=== PATIENT | female | born 1950 | race Caucasian/White ===

== ENCOUNTER 2024-07-01 06:33 | Observation (INO) ==
--- NOTE | 2024-06-01 10:15 | PAT Medication Instructions ---
Medication Instructions Date of Service June 01, 2024 Home Medications aspirin-caffeine 500 mg-32.5 mg tablet ([facility] [employer]) 2 tab PO QAM fluticasone propionate 50 mcg/actuation nasal spray,suspension 50 mcg intranasal UD PRN Congestion hydrochlorothiazide 25 mg tablet 25 mg PO QAM ibuprofen 200 mg capsule 200 mg PO Q6H PRN Pain levothyroxine 88 mcg tablet 88 mcg PO QAM losartan 50 mg tablet 50 mg PO QAM pantoprazole 40 mg tablet,delayed release 40 mg PO BID potassium chloride 20 mEq tablet,extended release(part/cryst) 20 meq PO QAM sertraline 100 mg tablet 100 mg PO QAM ASK your surgeon for instructions aspirin-caffeine 500 mg-32.5 mg tablet ([facility] [employer]) 2 tab PO QAM ibuprofen 200 mg capsule 200 mg PO Q6H PRN Pain DO NOT take the morning of surgery hydrochlorothiazide 25 mg tablet 25 mg PO QAM losartan 50 mg tablet 50 mg PO QAM potassium chloride 20 mEq tablet,extended release(part/cryst) 20 meq PO QAM Take morning of surgery With a small sip of water, OTHERWISE NOTHING TO EAT OR DRINK AFTER MIDNIGHT: fluticasone propionate 50 mcg/actuation nasal spray,suspension 50 mcg intranasal UD PRN Congestion (if needed) levothyroxine 88 mcg tablet 88 mcg PO QAM pantoprazole 40 mg tablet,delayed release 40 mg PO BID sertraline 100 mg tablet 100 mg PO QAM Take evening before surgery fluticasone propionate 50 mcg/actuation nasal spray,suspension 50 mcg intranasal UD PRN Congestion (if needed) pantoprazole 40 mg tablet,delayed release 40 mg PO BID Other Notes If you have any questions please call us at [phone] or [phone] or [phone] or [phone]
--- NOTE | 2024-06-06 08:14 | Anesthesiology Consultation ---
Date of Service June 06, 2024 Assessment & Plan (1) Encounter for pre-operative examination: - Infectious disease screening: Per assessment on 06/06/24- No known recent infectious disease contacts or current infectious disease symptoms. - Outpatient joint assessment: Pt currently scheduled for inpatient pathway. If surgeon requests review for outpatient joint pathway, patient is not recommended candidate for outpatient joint program from anesthesia standpoint based on available information. Chart Review Chart Review: Acceptable Risk for Surgery and Patient seen in Pre Admission Testing Teaching & Discussion Pre-Anesthesia Teaching/Discussion Notes: Instructed NPO after midnight before surgery,except medications with 15 cc of water. Medication instructions provided according to the PAT guidelines. History Surgery Operation Date: 07/01/24 10:40 Proposed Procedures p Right Total Knee Arthroplasty - Candido Rincon MD Height/Weight Height: 4 ft 11 in Weight: 66.8 kg Allergies Allergy/AdvReac Type Severity Reaction Status Date / Time No Known Allergies Allergy Verified 05/27/24 08:19 Medications Home Medications Medication Instructions Recorded Confirmed Last Taken aspirin-caffeine 500 mg-32.5 mg 2 tab PO QAM 05/27/24 05/27/24 Unknown tablet ([facility] [employer] Body) fluticasone propionate 50 50 mcg intranasal UD PRN Congestion 05/27/24 05/27/24 Unknown mcg/actuation nasal spray,suspension hydrochlorothiazide 25 mg tablet 25 mg PO QAM 05/27/24 05/27/24 Unknown ibuprofen 200 mg capsule 200 mg PO Q6H PRN Pain 05/27/24 05/27/24 Unknown levothyroxine 88 mcg tablet 88 mcg PO QAM 05/27/24 05/27/24 Unknown losartan 50 mg tablet 50 mg PO QAM 05/27/24 05/27/24 Unknown pantoprazole 40 mg tablet,delayed 40 mg PO BID 05/27/24 05/27/24 Unknown release potassium chloride 20 mEq 20 meq PO QAM 05/27/24 05/27/24 Unknown tablet,extended release(part/cryst) sertraline 100 mg tablet 100 mg PO QAM 05/27/24 05/27/24 Unknown Past Medical History Medical History Chronic back pain X-ray showed "showed tightening around the nerves in lower back" History of depression History of hypertension Hx of gastroesophageal reflux (GERD) Hx of hyperlipidemia Hx of migraines Exercise / Class Metabolic Activity III < 4 Walking/Shop/Light housework (uses cane PRN) Past Surgical History Surgical History History of dilatation and curettage History of esophagogastroduodenoscopy (EGD) Hx laparoscopic cholecystectomy (2023) Hx of arthroscopy of left knee Foreign body removal Hx of bilateral cataract extraction Hx of breast biopsy Right breast Benign; marker is present Hx of section Hx of colonoscopy (2022) Past Anesthesia History No Hx of Anesthesia Complications * Mother- slow to wake History of PONV No Hx of PONV and No Hx of Motion Sickness Social History Smoking Status: Former smoker Do You Dip or Chew Tobacco: No Smoking End Date: Quit years ago Hx Alcohol Use: Yes alcohol intake frequency: holidays/special occasions only Hx Substance Use: No substance use type: does not use Review of Systems Patient denies chest pain, shortness of breath, fever, chills, cough, wheezing. Physical Exam Vital Signs BP 159/78 P 65 TEMP 98.0 SP02 98%RA RESP 16 Physical Full cervical extension range of motion. Full TMJ range of motion. TMD 3 finger breaths Mallampati Score III Dentition: full upper/lower dentures Lungs: clear throughout to auscultation Cardiac: regular rate and rhythm, no murmurs noted Spine: normal Carotid arteries: negative bruit Extremities: no LE edema Lab Results Anesthesia Preop Results Results Anesthesia Widget: WBC 5.78 K/ul (4.8-10.8) 06/06/24 Hgb 13.4 g/dl (12.0-16.0) 06/06/24 Hct 38.2 % (37.0-47.0) 06/06/24 Plt 356 K/uL (130-400) 06/06/24 Na 141 mmol/L (136-145) 06/06/24 K 3.5 mmol/L (3.5-5.1) 06/06/24 Cl 106 mmol/L (98-107) 06/06/24 CO2 27 mmol/L (21-32) 06/06/24 BUN 25 mg/dl (6-23) H 06/06/24 Creat 1.02 mg/dl (0.6-1.2) 06/06/24 Glucose Level 85 mg/dl (70-99(Fasting)) 06/06/24 PT 10.1 Seconds (9.0-12.0) 06/06/24 PTT 25 Seconds (21-31) 06/06/24 INR 0.9 (0.9-1.1) 06/06/24 Blood Type B Negative 06/06/24 Antibody Screen NEGATIVE 06/06/24 Testing Electrocardiogram Date: 09/14/23 NSR at 61bpm. NS TWA. Chest X-Ray Date: 08/04/23 FINDINGS: Cardiomediastinal and hilar silhouettes are within normal limits. Eventration of the right hemidiaphragm. Atherosclerosis of the aorta. No pneumothorax, pleural effusion, airspace consolidation or pulmonary edema. Bones appear grossly intact. IMPRESSION: No acute process.
--- NOTE | 2024-06-20 20:20 | History & Physical Report ---
Date of Service June 20, 2024 Assessment & Plan (1) Degenerative arthritis of knee, bilateral: 73-year-old female with advanced bilateral knee DJD. History of left knee arthroscopy in the past. She has failed conservative measures. The right knee is bothering more than the left. She elected proceed with right knee replacement. Plan: We are going to take her to the operating room and do a right total knee replacement for the risks and benefits of this procedure were explained. Informed consent was obtained. Will plan on using aspirin for DVT prophylaxis. She is planning to discharge to home using the [facility] home health program. She lives with her brother and her children can assist in the her care postoperatively. (2) Hx of hyperlipidemia: (3) History of hypertension: (4) Hx of gastroesophageal reflux (GERD): (5) History of depression: History of Present Illness Chief Complaint: . Bilateral knee pain right side greater than left. Primary Care Provider: Eleanor Sampson DO . The patient is a 73-year-old female referred by my physician assistant media buyer Kenan for treatment of her knees. She got a fairly long history of bilateral knee pain discomfort is gradually gotten worse over time. Previously she has been treated at the [facility]. She has a history of a left knee scope in the past. She been through therapy and injections which become less successful over time. The right knee is bothering more than the left. He is actually resorted and used a cane to get around. She like to have her right knee replaced. Allergies Allergy/AdvReac Type Severity Reaction Status Date / Time No Known Allergies Allergy Verified 05/27/24 08:19 Home Medications Medication Instructions Recorded Confirmed Type aspirin-caffeine 500 mg-32.5 mg 2 tab PO QAM 05/27/24 05/27/24 History tablet ([facility] [employer]) fluticasone propionate 50 50 mcg intranasal UD PRN Congestion 05/27/24 05/27/24 History mcg/actuation nasal spray,suspension hydrochlorothiazide 25 mg tablet 25 mg PO QAM 05/27/24 05/27/24 History ibuprofen 200 mg capsule 200 mg PO Q6H PRN Pain 05/27/24 05/27/24 History levothyroxine 88 mcg tablet 88 mcg PO QAM 05/27/24 05/27/24 History losartan 50 mg tablet 50 mg PO QAM 05/27/24 05/27/24 History pantoprazole 40 mg tablet,delayed 40 mg PO BID 05/27/24 05/27/24 History release potassium chloride 20 mEq 20 meq PO QAM 05/27/24 05/27/24 History tablet,extended release(part/cryst) sertraline 100 mg tablet 100 mg PO QAM 05/27/24 05/27/24 History Past Med/Surg History Problem List Encounter for pre-operative examination Degenerative arthritis of knee, bilateral Medical History Chronic back pain X-ray showed "showed tightening around the nerves in lower back" Hx of migraines History of depression History of hypertension Hx of hyperlipidemia Hx of gastroesophageal reflux (GERD) Surgical History Hx of breast biopsy Right breast Benign; marker is present History of dilatation and curettage Hx of arthroscopy of left knee Foreign body removal Hx laparoscopic cholecystectomy (2023) Hx of section History of esophagogastroduodenoscopy (EGD) Hx of colonoscopy (2022) Hx of bilateral cataract extraction Social History Smoking Status: Former smoker Second Hand Exposure: Yes (brother lives w/pt and he smokes); Do You Dip or Chew Tobacco: No; Hx Alcohol Use: Yes Hx Substance Use: No Preferred Language: Citizen Of [place] Communication Ability: Effective Depilatory Painter Required: No Beliefs That Will Affect Care: None Current Living Situation: Family Feels Safe at Home: Yes Assistive Devices: Denture - Upper and Denture - Lower Review of Systems All systems reviewed & are unremarkable except as noted in HPI & below. Physical Exam . Physical examination reveals a pleasant middle-age female. She looks younger than her stated age. Examination of both knees reveal patient ambulates with use of cane. She got valgus alignment to both knees which is increased with weightbearing. Her range of motion is symmetric with near full extension to 120 degrees of flexion bilaterally. No particular pain with hip motion. She is neurologically intact. Constitutional WD/WN, vitals as above Respiratory normal respiratory effort, lungs clear to auscultation Cardiovascular RRR, no murmur, no edema Gastrointestinal (Abdomen) normal bowel sounds, soft, nontender, no hepatosplenomegaly Results & Data Results & Data Laboratory Results . Diagnostic Findings . X-rays of the knees were reviewed. Shows advanced bilateral knee lateral compartment DJD. She has complete loss of the lateral joint space. Both knees are fairly advanced. PG Care Time/CCT Total # of Minutes Spent Total Time Spent with Patient: Total time spent is greater than 50% in coordination of care (as documented) at patient's floor/unit and/or counseling patient: Coding Level of Care Code None Diagnoses Degenerative arthritis of knee, bilateral M17.0 Hx of hyperlipidemia Z86.39 History of hypertension Z86.79 Hx of gastroesophageal reflux (GERD) Z87.19 History of depression Z86.59
[~2024-07-01 06:33] MED LIST: BUPIVACAINE 0.5 % 5 MG/1 ML PF 10ML VIAL ONE; ROPIVACAINE 0.5% 5 MG/ML 30 ML VIAL ONE
--- NOTE | 2024-07-01 06:46 | History & Physical Bridge Note ---
Date of Service July 01, 2024 History & Physical Bridge Note I have examined the patient, reviewed the History & Physical and in the interval since the performance of the History & Physical I have noted the following changes of clinical significance: no changes noted
--- OUTSIDE RECORDS SUMMARY | 2024-07-01 06:57 | External Medical Summary | Summary of Care ---
Author Name Unknown Organization [facility] Address [address] [place] [address] Phone [phone] Care Team Providers Care Medicaid Billing Specialist Name Role Phone Arsenio Sampson DO Primary Care Provider [phone] Reason for Visit * Reason Comments eRx-Medication Refill Encounter Details Date Type Department Care Team (Late st Contact Info) Description 06/24/2024 Refill [facility] [address] [place] [address] Arsenio Sampson DO [address] [place] [address] Allergies No known active allergiesdocumented as of this encounter (statuses as of 06/29/2024) Medications VITAMIN C 500 MG PO TABS 1 TABLET DAILY 0 08/04/19 07 Active VITAMIN D 2000 UNITS PO CAPS Take by mouth. A ctive Cyanocobalamin 2000 MCG TABS Take by mouth. A ctive Black Elderberry(Berr y-Flower) 575 MG Oral Capsule Take by mouth daily . Active Magnesium 400 MG Oral Capsule Take 1 Capsule by mouth in the morning. Active Proventil HFA 108 (90 Base) MCG/ACT Inhalation Aerosol SolutionIndicat ions:Bronchitis ,Upper respiratory tract infection, unspecified type Inhale 2 Puffs by mouth every 4 hours as needed for Congestion, Cough or Wheezing. 18 g 06/15/19 23 Active Brice Back & Body 500-32.5 MG Oral Tablet (Aspirin-Caffei ne) Take 2 Tablets by mouth every morning. Active Ibuprofen 200 MG Oral Tablet (Motrin) Take 1 Tablet by mouth every 4 hours as needed. Active Losartan Potassium 50 MG Oral Tablet (Cozaar)Indicat ions:Essential hypertension with goal blood pressure less than 140/90 Take 1 Tablet by mouth in the morning. 90 Tablet 3 10/11/19 24 Active oxyCODONE-Aceta minophen 5-325 MG Oral Tablet (Percocet) Take 1 Tablet by mouth every 6 hours as needed for Pain, Breakthrough. 14 Tablet 11/20/19 24 Active hydroCHLOROthia zide 25 MG Oral Tablet (Hydrodiuril)In dications:Edema TAKE 1 TABLET BY MOUTH DAILY NEEDED FOR EDEMA 90 Tablet 3 02/04/20 24 Active Pantoprazole Sodium 40 MG Oral Tablet Delayed Release (Protonix)Indic ations:Acute gastric ulcer without hemorrhage or perforation take 1 tablet by mouth twice a day 30 MINUTES PRIOR TO THE 1ST MEAL OF THE DAY,DO NOT CRUSH,SPLIT OR CHEW THE TABLET 60 Tablet 5 02/10/20 24 Active Sertraline HCl 100 MG Oral Tablet (Zoloft)Indicat ions:Adjustment disorder with depressed mood Take 1 Tablet by mouth in the morning. 90 Tablet 1 02/20/20 24 Active Fluticasone Propionate 50 MCG/ACT Nasal Suspension (Flonase)Indica tions:Allergic rhinitis due to pollen, unspecified seasonality USE 2 SPRAYS IN EACH NOSTRIL EVERY MORNING 48 g 1 02/20/20 24 Active Potassium Chloride Sara ER 20 MEQ Oral Tablet Extended ReleaseIndicati ons:Abnormal blood chemistry TAKE 1 TABLET BY MOUTH EVERY MORNING 90 Tablet 1 02/20/20 24 Active Levothyroxine Sodium 88 MCG Oral Tablet (Levoxyl) TAKE 1 TABLET BY MOUTH EVERY MORNING AT LEAST 30 MINUTES PRIOR TO BREAKFAST OR OTHER MEDICATIONS 90 Tablet 06/28/19 25 Active Levothyroxine Sodium 88 MCG Oral Tablet (Levoxyl) TAKE 1 TABLET BY MOUTH EVERY MORNING AT LEAST 30 MINUTES PRIOR TO BREAKFAST OR OTHER MEDICATIONS 90 Tablet 03/29/19 25 025 Discontinued documented as of this encounter (statuses as of 06/29/2024) Active Problems Problem Noted Date Diagnosed Date Chronic calculous cholecystitis 08/17/2023 Dyslipidemia, goal LDL below 100 03/24/2019 Acquired hypothyroidism 03/05/2017 Essential hypertension with goal blood pressure less than 140/90 03/13/2016 Adjustment disorder with depressed mood documented as of this encounter (statuses as of 06/29/2024) Resolved Problems Problem Noted Date Diagnosed Date Resolved Date Prediabetes 07/21/2017 10/14/2018 Overview: Per Prediabetes protocol #1 HTN, goal below 140/90 07/03/201503/13 Dyslipidemia, goal to be determined 02/13/2009 02/14/2014 Overview (02/13/2009): Per Lipid Taxonomy. ADVANCE DIRECTIVE INFORMATION 06/08/2007 01/04/2024 Overview (06/08/2007): No, Advance Directive brochure offered , patient declined. Hypothyroidism 03/13/2016 Edema 10/03/2016 Dyslipidemia, goal LDL below 160 02/13/2009 Overview (02/13/2009): Per Lipid Taxonomy. documented as of this encounter (statuses as of 06/29/2024) Immunizations Name Administration Dates Next Due COVID-19 mRNA, LNP-s, No Pre serve, 2-Dose Series (Teachable) 05/23/2020,04/25/2020 HEP A - Hepatitis A (Adult > 18 yrs) 02/20/2014, 02/13/2011 Hepatitis B, 20+ yrs 07/25/2011,04/16/2011,01/22 Pneumococcal Conjugate Vacc, 13 Valent (Prevnar) 06/27/2016 Pneumococcal Polysaccharide PPV23 (Pneumovax) 04/08/2019 Seasonal Influenza Vac., MDV , IM, 0.5 mL (Fluzone) 12/04/2011,11/08/2010,2009,01/16 Seasonal Influenza, High Dos e, Trivalent, PF, IM (Fluzone HD) 02/17/2024 Seasonal Influenza, PF, 6 M & above, IM , (FluLaval or Fluzone) 12/19/2019,01/25/2019 Seasonal Influenza, Quadriva lent Hd (Fluzone Hd) 01/30/2023,01/30/2022 TDAP (age 10 and older)(Boostrix) 01/25/2019 TDAP, Age 7 and older, IM (Adacel) 09/18/2009 documented as of this encounter Social History Tobacco Use Types Packs/Day Years Used Date Smoking Tobacco: Former Cigarettes 0.5 20 0 03/02/1980 - 03/02/2000 Passive Smoke Exposure: Current Smokeless Tobacco: Never Alcohol Use Standard Drinks/Week Comments Yes 4 (1 standard drink = 0.6 oz pur e alcohol) occasional: 2per week PHQ-2 Answer Date Recorded PHQ Adult Total Score 0 02/17/2024 Hunger Vital Sign Answer Date Recorded Within the past 12 months, y ou worried that your food would run out before you got the money to buy more. Never true 02/03/20 24 Within the past 12 months, t he food you bought just didn't last and you didn't have money to get more. Never true 02/03/2024 Childcare Answer Date Recorded Do you feel overwhelmed with taking care of a child, family member or friend? No 02/03/2024 Does your family need help f inding childcare? (Household - for ages 0-17 years) Not on file 02/03/2024 Clothing Answer Date Recorded Have you been unable to get clothing when it was really needed? No 02/03/2024 Is your family able to get c lothes or diapers when needed? (Household - for ages 0-17 years) Not on file 02/03/2024 Personal Safety Answer Date Recorded Do you feel unsafe or have concerns for your saf ety? No 02/03/2024 Do you have concerns for you r family's safety? (Household - for ages 0-17 years) Not on file 02/03/2024 Utilities Answer Date Recorded Do you have trouble paying y our heating, water, or electric bill? No 02/03/2024 Is your family able to pay t he heat, water, or electric bill? (Household - for ages 0-17 years) Not on file 02/03/2024 Does your family have access to good internet? (Household - for ages 0-17 years) Not on file 02/03/2024 Employment Status Answer Date Recorded Are you unemployed or without regular income? No 02/03/2024 Does the household have a re gular source of income? (Household - for ages 0-17 years) Not on file 02/03/2024 Social Connections Answer Date Recorded How often do you feel lonely or isolated from th ose around you? Never 02/03/2024 Financial Resource Strain Answer Date R ecorded Do you have any trouble payi ng for your medications, or do you think you might in the future? No 02/03/2024 Does your family have troubl e paying for medicine? (Household - for ages 0-17 years) Not on file 02/03/2024 Transportation Needs Answer Date Record ed Do you have trouble getting a ride to medical visits or work? (Adult - for ages 18 years and over) Not on file 02/03/2024 Does your family have a hard time getting a ride to doctors visits? (Household - for ages 0-17 years) Not on file 02/03/2024 Has lack of transportation k ept you from medical appointments, meetings, work, or from getting things needed for daily living? Check all that apply. No 02/03/2024 Do you (or your family) have trouble finding or paying for a ride (transportation)? (Household - for ages 0-17 years) Not on file 02/03/2024 Housing Stability Answer Date Recorded Do you currently live in a s helter or have no steady place to sleep at night? No 02/03/2024 Do you think you are at risk of becoming homeless? (Adult - for ages 18 years and over) Not on file 02/03/2024 Does your family worry about paying for your home or becoming homeless? (Household - for ages 0-17 years) Not on file 1 04/05/2023 Are you homeless or worried that you might be in the future? No 02/03/2024 Are you (or your family) alvaro eless or worried that you might be in the future? (Household - for ages 0-17 years) Not on file Food Insecurity Answer Date Recorded Do you need food for this week? No 02/03/2024 Are you able to get enough f ood for your family? (Household - for ages 0-17 years) Not on file 02/03/2024 Does your family need food t his week? (Household - for ages 0-17 years) Not on file 02/03/2024 Do you always have enough fo od for your family? (Household - for ages 0-17 years) Not on file 02/03/2024 Food Insecurity Answer Date Recorded Within the past 12 months, y ou worried that your food would run out before you got the money to buy more. Never true 02/03/20 24 Within the past 12 months, t he food you bought just didn't last and you didn't have money to get more. Never true 02/03/2024 Do you need food for this week? 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 regarding patient needing labs. Patient was notified. Successfully contacted patient and provided [facility] message. * Telephone Encounter - Dana Christian [facility] - 06/27/2024 6:20 AM EDTSigned Prescriptions: Disp Refills Levothyroxine Sodium 88 MCG Oral Tablet (L*90 Tab*0 Sig: TAKE 1 TABLET BY MOUTH EVERY MORNING AT LEAST 30 MINUTES PRIOR TO BREAKFAST OR OTHER MEDICATIONS Authorizing Provider: ARSENIO SAMPSON Ordering User: DANA CHRISTIAN * Telephone Encounter - Dana Christian [facility] - 06/27/2024 6:20 AM EDT 2nd attempt Provided 90 days supply with 0 refill(s). Per refill protocol patient should have repeat tsh on file within past year. Reviewed : AMP report Care Gaps/Health Maintenance medications list for any routine labs typically ordered for this patient. Lab orders placed. Please contact patient to advise of labs ordered for blood draw. Fasting is not required. Advise toobtain labs before requesting the next refill. Thank you, Dana Christian, PharmD. Clinical Pharmacist [facility] 06/27/2024, 6:20 AM * Telephone Encounter - Interface, [facility] - 06/26/2024 12:41 PM EDT Pending Prescriptions: Disp Refills Levothyroxine Sodium 88 MCG Oral Tablet [P*90 Tab*0 Sig: TAKE 1 TABLET BY MOUTH EVERY MORNING AT LEAST 30 MINUTES PRIOR TO BREAKFAST OR OTHER MEDICATIONS documented in this encounter Plan of Treatment Upcoming Encounters Date Type Department Care Team (Latest Contact Info) Description 08/22/2024 11:45 AM EDT Hospital Encounter [facility], Endoscopy Room [facility] [address] [place] [phone] Orlando Gill, DO [address] [place] [address] 08/22/2024 11:45 AM EDT - 08/22/2024 12:15 PM EDT Surgery [facility]O [facility], Endoscopy Room [facility] [address] [place] [phone] Orlando Gill, DO [address] [place] [address] COLONOSCOPY FLEXIBLE PROXIMAL DIAGNOSTIC 08/29/2024 9:10 AM EDT Office Visit [facility] [place] [facility] [address] [place] [phone] Arsenio Sampson, DO [address] [place] [address] 10/03/2024 8:15 AM EDT Imaging Radiology [address] [place] [phone] Scheduled Procedures Name Priority Associated Diagnoses Date/Ti me COLONOSCOPY FLEXIBLE PROXIMAL DIAGNOSTIC Family history of colonic polyps 08/22/2024 11:45 AM EDT Health Maintenance Due Date Last Done Comments Cologuard 12/15/1995 Fecal Occult Blood Test 12/15/1995 Sigmoidoscopy 12/15/1995 Adult Wellness Visit 2016 Zoster Vaccines (2 of 2) 12/31/2021 11/05/2021 COVID-19 Vaccine ( season) 2023 01/18/2021, 05/23/2020, 04/25/2020 Mammogram 09/23/2024 09/24/2023, 08/31, 08/18/2022, Additional history exists Albumin/Creatinine Ratio 01/30/2025 01/30/2022 Depression Screening 02/16/2025 02/17/2024 GFR 02/21/2025 02/22/2024, 07/31, 08/03/2023, Additional history exists TSH 02/21/2025 02/22/2024, 05/2023, 07/31/2022, Additional history exists Colonoscopy 11/16/2025 11/16/2020, 10/31, 04/07/2017, Additional history exists Colorectal Cancer Screening 11/16/2025 Lipid Panel 08/02/2028 08/03/2023, 0603/2022, 08/01/2021, Additional history exists DTap/Tdap Vaccines (3 - Td or Tdap) 01/25/2029 01/25/2019, 09/18/2009 DXA Scan 02/01/2031 02/02/2024, 05/2023, 03/31/2016, Additional history exists Hepatitis B Vaccine Completed 07/25/2011, 04/16/2011, 01/22/2011 Pneumococcal Vaccine: 50+ Years Completed 04/08/2019, 06/27/2016 RETIRED - COLONOSCOPY-EVERY 5 YRS AGES 18-100 Discontinued 11/16/2020, 11/16/2020, 04/07/2017, Additional history exists Influenza Vaccine (FLU shot) Completed 02/17/2024, 01/30/2023, 01/30/2022, Additional history exists HPV (Gardasil) Vaccine Aged Out No lo nger eligible based on patient's age to complete this topic MENINGOCOCCAL (MENACTRA/MENVEO) Aged Out No longer eligible based on patient's age to complete this topic Meningitis B Vaccine (Bexsero/Trumemba) Aged Out No longer eligible based on patient's age to complete this topic documented as of this encounter Medical Devices Implanted Type Area Video Camera Operator Device Identifier Shelf Expiration Date Model / Serial / Lot Lens 22.5 [id number] - [id number] - [id number] Implanted:Qty: 1 on 07/18/2015 by Raheem Dominguez MD at [facility] Right: Eye DESI : SURGICAL 01/30/2020 [id number] / [id number] / Lens 22.5 [id number] - [id number] - [id number] Implanted:Qty: 1 on 08/14/2015 by Khushi Montgomery MD at [facility] Left: Eye DESI : SURGICAL 05/30/2020 [id number] / [id number] / documented as of this encounter Advance Directives * Full Code (Latest Code Status on File) Date Activated Date Inactivated Comments 11/20/2023 7:56 AM 11/20/2023 5:22 PM This order r eflects the patients wishes and were consensually agreed upon. Question Answer Comments Discussion of Advance Direct frank occurred with: Not Discussed due to patient's condition * Full Code Date Activated Date Inactivated Comments 08/14/2015 2:41 PM 08/14/2015 7:21 PM This order r eflects the patients wishes and were consensually agreed upon. * Full Code Date Activated Date Inactivated Comments 07/18/2015 3:18 PM 07/18/2015 8:04 PM This order r eflects the patients wishes and were consensually agreed upon. * Full Code Date Activated Date Inactivated Comments 07/18/2015 1:08 PM 07/18/2015 3:18 PM This order r eflects the patients wishes and were consensually agreed upon. Care Teams Medicaid Billing Specialist Relationship Specialty Start Date End Date Arsenio Sampson DO PCP - General Family Medicine 03/19/18 documented as of this encounter
[2024-07-01] MEDS: METOCLOPRAMIDE HCL 10 MG TABLET PO SCH (07:24)
[2024-07-01] MEDS: dexAMETHasone**PF** 10 MG/ML VIAL IV SCH (07:24)
[2024-07-01] MEDS: FAMOTIDINE 20 MG TAB PO SCH (07:24)
[2024-07-01] MEDS: CeleBREX 200 MG CAP PO SCH (07:25)
[2024-07-01] MEDS: ACETAMINOPHEN 500 MG TAB PO SCH ×2 (07:25→15:06)
[2024-07-01] MEDS: LR 500ML BOLUS, THEN 15ML/HR IV SCH (07:25)
[2024-07-01] MEDS ORDERED: MIDAZOLAM HCL 1 MG/ML 2ML VIAL ONE (07:31)
[2024-07-01] MEDS ORDERED: fentaNYL citrate PF 100 MCG/2 ML VIAL ONE (07:31)
[2024-07-01] MEDS ORDERED: LIDOCAINE 2% 2 ML VIAL/AMP(20MG/ML) INFIL ONE (07:32)
[2024-07-01] MEDS ORDERED: fentaNYL citrate PF 100 MCG/2 ML VIAL IV PRN (07:33)
[2024-07-01] MEDS ORDERED: HYDROmorphone INJ 1 MG/ML SYRINGE IV PRN (07:33)
[2024-07-01] MEDS ORDERED: ePHEDrine sulfate 50 MG/ML AMP IV PRN (07:33)
[2024-07-01] MEDS ORDERED: ATROPINE SULFATE 0.1 MG/ML 10ML SYR IV PRN (07:33)
[2024-07-01] MEDS ORDERED: ONDANSETRON INJ 2 MG/ML 2 ML VIAL IV PRN ×2 (07:33→14:16)
[2024-07-01] MEDS ORDERED: PROPOFOL IV EMULSION 10 MG/ML 20 ML VIAL IV ONE (07:34)
--- NOTE | 2024-07-01 07:35 | Anesthesiology Consultation ---
Date of Service July 01, 2024 Assessment & Plan Chart Review Chart Review: Acceptable Risk for Surgery Consults Requested none ASA ASA2 Proposed Anesthesia Anesthesia Type: MAC Spinal [facility] Laterality: Right Site: Adductor Canal History Surgery Operation Date: 07/01/24 08:50 Proposed Procedures p Right Total Knee Arthroplasty - Candido Rincon MD Height/Weight Height: 4 ft 11 in Weight: 66.2 kg Allergies Allergy/AdvReac Type Severity Reaction Status Date / Time No Known Allergies Allergy Verified 07/01/24 07:03 Medications Home Medications Medication Instructions Recorded Confirmed Last Taken aspirin-caffeine 500 mg-32.5 mg 2 tab PO QAM 05/27/24 07/01/24 06/24/24 tablet (Brice Back and Body) fluticasone propionate 50 50 mcg intranasal UD PRN Congestion 05/27/24 07/01/24 Unknown mcg/actuation nasal spray,suspension hydrochlorothiazide 25 mg tablet 25 mg PO QAM 05/27/24 07/01/24 06/30/24 08:00 ibuprofen 200 mg capsule 200 mg PO Q6H PRN Pain 05/27/24 07/01/24 06/24/24 levothyroxine 88 mcg tablet 88 mcg PO QAM 05/27/24 07/01/24 07/01/24 05:30 losartan 50 mg tablet 50 mg PO QAM 05/27/24 07/01/24 06/30/24 08:00 pantoprazole 40 mg tablet,delayed 40 mg PO BID 05/27/24 07/01/24 07/01/24 05:30 release potassium chloride 20 mEq 20 meq PO QAM 05/27/24 07/01/24 06/30/24 08:00 tablet,extended release(part/cryst) sertraline 100 mg tablet 100 mg PO QAM 05/27/24 07/01/24 07/01/24 05:30 acetaminophen 500 mg tablet 1,000 mg (2 x 500 mg) PO TID pain 06/29/24 07/01/24 06/30/24 20:00 (Tylenol Extra Strength) 30 days #180 tabs aspirin 81 mg tablet,delayed 81 mg PO BID 45 days #90 tabs 06/29/24 07/01/24 Unknown release (Brice Low Dose Aspirin) cefadroxil 500 mg capsule 500 mg PO BID 7 days #14 caps 06/29/24 07/01/24 Unknown ketorolac 10 mg tablet 10 mg PO Q6 pain 5 days #20 tabs 06/29/24 07/01/24 Unknown ondansetron 4 mg disintegrating 4 mg PO Q8 PRN nausea #20 tabs 06/29/24 07/01/24 Unknown tablet oxycodone 5 mg tablet 5 - 10 mg (1 - 2 x 5 mg) PO Q6 PRN 06/29/24 07/01/24 Unknown pain #40 tabs sennosides 8.6 mg tablet (Senokot) 8.6 mg PO BID prevent constipation 06/29/24 07/01/24 Unknown 14 days #28 tabs Active Medications Generic Name Dose Route Start Last Admin Trade Name Freq PRN Reason Stop Dose Admin Acetaminophen 1,000 mg 07/01/24 06:00 07/01/24 07:25 Acetaminophen 500 Mg Tab PO 07/01/24 18:00 1,000 mg PREOP DIANE Administration Celecoxib 200 mg 07/01/24 06:00 07/01/24 07:25 Celebrex 200 Mg Cap PO 07/01/24 18:00 200 mg PREOP DIANE Administration Dexamethasone Sodium Phosphate 10 mg 07/01/24 06:00 07/01/24 07:24 DexamethasonePf 10 Mg/Ml Vial IV 07/01/24 18:00 10 mg PREOP DIANE Administration Famotidine 20 mg 07/01/24 06:00 07/01/24 07:24 Famotidine 20 Mg Tab PO 07/01/24 18:00 20 mg PREOP DIANE Administration Lactated Ringer's 1,000 mls @ 15 mls/hr 07/01/24 06:00 07/01/24 07:25 Lr IV 07/01/24 18:00 500 mls/hr .Q24H DIANE Administration Metoclopramide HCl 10 mg 07/01/24 06:00 07/01/24 07:24 Metoclopramide Hcl 10 Mg Tablet PO 07/01/24 18:00 10 mg PREOP DIANE Administration NPO Date Last Intake of Fluids: 06/30/24 Time Last Intake of Fluids: 22:00 Last Intake of Fluids Comment: Sip of water with pills this AM Date Last Intake of Solids: 06/30/24 Time Last Intake of Solids: 22:00 Past Medical History Medical History Chronic back pain X-ray showed "showed tightening around the nerves in lower back" Hx of migraines History of depression History of hypertension Hx of hyperlipidemia Hx of gastroesophageal reflux (GERD) Exercise / Class Metabolic Activity II 4-5 Yardwork/Stairs/Walk up hill Past Surgical History Surgical History Hx of breast biopsy Right breast Benign; marker is present History of dilatation and curettage Hx of arthroscopy of left knee Foreign body removal Hx laparoscopic cholecystectomy (2023) Hx of section History of esophagogastroduodenoscopy (EGD) Hx of colonoscopy (2022) Hx of bilateral cataract extraction Past Anesthesia History No Hx of Anesthesia Complications * Mother- slow to wake History of PONV No Hx of PONV Social History Smoking Status: Former smoker Do You Dip or Chew Tobacco: No Smoking End Date: Quit years ago Hx Alcohol Use: Yes alcohol intake frequency: holidays/special occasions only Hx Substance Use: No substance use type: does not use Review of Systems ROS Unobtainable: All systems reviewed & are unremarkable except as noted in HPI & below Physical Exam Vital Signs Last Vital Signs Temp 36.6 C 07/01/24 07:06 Pulse 65 07/01/24 07:06 Resp 20 07/01/24 07:06 BP 215/93 H 07/01/24 07:06 Pulse Ox 98 07/01/24 07:06 O2 Del Method Room Air 07/01/24 07:06 Constitutional no acute distress ENMT Mouth: + edentulous Thyromental Distance: > or= 3.5 Finger Breadths Mallampati Class: II Neck normal visual inspection Respiratory normal respiratory effort Auscultation: lungs clear to auscultation bilaterally Cardiovascular Rate/Rhythm: regular rate and regular rhythm Neurologic moves all extremities Psychiatric Orientation: alert and oriented x 3 Testing Electrocardiogram Date: 09/14/23 NSR at 61bpm. NS TWA. Chest X-Ray Date: 08/04/23 FINDINGS: Cardiomediastinal and hilar silhouettes are within normal limits. Eventration of the right hemidiaphragm. Atherosclerosis of the aorta. No pneumothorax, pleural effusion, airspace consolidation or pulmonary edema. Bones appear grossly intact. IMPRESSION: No acute process.
[2024-07-01] MEDS ORDERED: PHENYLEPHRINE HCL 10 MG/ML VIAL ONE (07:37)
[2024-07-01] MEDS: LR 60ML/HR IV SCH (08:29)
[2024-07-01] MEDS: ceFAZolin 2000MG 2,000 MG/15 ML SYR IV SCH (08:57)
[2024-07-01] MEDS: ORTHO JOINT ANESTHETIC ONE (09:37)
[2024-07-01] MEDS: ROPIV 0.5% 246mg, Ketorolac 30mg, EPINEPHrine 0.5mg in NSS INFIL SCH (09:37)
[2024-07-01] MEDS: TRANEXAMIC ACID 1,000 MG **IV Intra-op IV SCH (09:50)
--- NOTE | 2024-07-01 10:38 | Operative Report ---
PG Post Operative Report Pre & Post Diagnosis Operation Date: 07/01/24 08:50 Pre-Op Diagnosis: Right Knee Degenerative Joint Disease Post-Op Diagnosis: Right Knee Degenerative Joint Disease I identified the patient and participated in the time-out.: Yes Procedure Operation Date: 07/01/24 08:50 Actual Procedures p Right Total Knee Arthroplasty(Right) - Candido Rincon MD Surgeon Candido Rincon MD Manager Floral Kenan Ascencio PA-C Estimated Blood Loss 50 Findings Consistent with Post-Op Diagnosis Operative findings revealed right knee lateral compartment DJD. Just a grade 4 [id number] disease of the lateral compartment. She had some spotty grade 3 changes of the patellofemoral compartment and minimal medial compartment disease. She had a valgus deformity to her knee. Complete tearing and macerati on of her lateral meniscus. Specimens Right knee sent for pathology. Anesthesia Type Spinal MAC Complications none Disposition Accompanied Patient To Recovery: No Indications Patient is a 73-year-old female whose had a several year history of increasing bilateral knee pain discomfort right side greater than left. She been through extensive conservative treatment which became less successful with time. X-rays show bilateral knee arthritis. She like proceed with right total knee replacement as this was bothering more than the left. Description of Procedure Operative implants consist of: 1 Biomet Vanguard size 60 right posterior stabilized femoral component. 2. Biomet size 63 tibial tray. 3. 10 mm posterior stabilized polyethylene insert. 4. 28 x 8 all poly patella. The patient was taken to the operating, identified, placed on the operating table in supine position. All conductors were appropriately padded. IV antibiotics fibra anesthesia team. A spinal anesthetic and adductor canal block had been provided in the holding area. Contreras catheter was placed in sterile fashion. A right thigh tourniquet was then placed. The right lower extremity was then prepped and draped in usual sterile fashion. The right leg was elevated and exsanguinated with use of an Esmarch and a turn was placed at 300 mmHg. An anterior approach of the right knee was then performed through a longitudinal incision centered over the patella. Sharp dissection was got through subcutaneous tissue down the extensor mechanism. A medial parapatellar arthrotomy incision was made. Some subperiosteal dissection was carried out medially. The fat pad was dissected from the patella tendon. Lateral patellofemoral ligament was released. Patella subluxated laterally and the knee was flexed. The osteophytes taken off distal femur. The ACL and PCL were then released from the distal femur the tibia subluxated anteriorly. The external tibial alignment jig was then placed on the anterior face of the tibia and adjusted 12 mm medially. The proximal tibial cut was made to move about 2 to 3 mm of bone from the medial side. The tibia sized to a size 63. Attention drawn to the femur. The distal femur was entered with a sharp drill. Intramedullary canal was suction. A right 5 degree valgus cutting guide was placed. The distal femoral cutting block was pinned in place. This femoral cut was made to take an additional 3 mm of bone off distal femur. The femur was then sized to a size 60. The AP cutting block was pinned parallel to the epicondylar axis which was 3 degrees of external rotation. The anterior cut, anterior chamfer, posterior cut, posterior chamfer cuts were made. The box cutting guide was then placed and adjusted to slightly lateral and the box cut was made. The knee was flexed. The remnants of the medial and lateral menisci were excised. The osteophytes taken off the posterior aspect of femur. A trial femoral component was placed. The tibial tray was pinned in Cheryl external rotation and the drill and stem punch were used great defect in proximal tibia for the tibial tray. Knee was then trialed and the 10 mm insert fit most appropriately. Attention drawn the patella. The patella was cleaned of all soft tissue. Patella thickness measured about 16 mm in thickness and was cut down to 12. It was sized to a size 28 patella. The lug holes were drilled for the 28 patella. The lateral osteophytes removed. Patella button was placed. Knee was taken through range of motion patella tracked nicely with no thumbs test. Attention drawn to placement permanent components. All trial components were removed. Bone plug was placed in the distal femur limit blood loss. A double batch of Palacos G cement was mixed. A Biomet Vanguard size 60 right Po stabilized femoral component, size 63 tibial tray, a 10 mm posterior stabilized polyethylene insert, and a 28 x 8 all poly patella then cemented in place. The knee was brought out of the full extension till cement hardened. Final cement check was then performed. Pericapsular tissues were injected with total of 100 cc of Ortho mix. The patient did receive 1 g tranexamic acid. The tourniquet was then let down for final tourniquet time of 49 minutes. Hemostasis surgeries electrocautery. Extensor Meclomen then closed with combination 1 PDS suture and 1 Vicryl suture in a [id number] fashion. Extensor Meclomen checked found to be intact with subcutaneous tissues then closed with 2 Dexon suture in a buried interrupted fashion skin was closed skin leonard. Leg was then cleaned and dried and a sterile dressing with Xeroform, 4 fours, sterile cast padding, Evgeny bandage were applied. The patient was then transferred to the recovery room in stable condition. Patient tolerated procedure well and there were no complications. Kenan Ascencio, my physician physician assistant certified, was present for the entire procedure. His assistance was essential and required for appropriate patient positioning, prepping and draping, surgical exposure, performing the technical details of the operation, placement the implants, closure of the wound, and placement of the sterile bandage. I attest to the content of the Intraoperative Record and any orders documented therein. Any exceptions are noted below.
--- NOTE | 2024-07-01 11:03 | XRay Report ---
XR knee RT 1 or 2V routine HISTORY: 73 years-old Female Surgical Post Op right knee arthroplasty COMPARISON: Radiographs 05/19/2024 TECHNIQUE: 2 views of the right knee FINDINGS: Total joint arthroplasty with patellar resurfacing. Anterior midline skin leonard with expected posto perative soft tissue swelling and deep tissue air. IMPRESSION: Total joint arthroplasty with expected postoperative changes. ACT 112: Negative or not required by law. The above report was generated using voice recognition software. It may contain grammatical, syntax o r spelling errors. Electronically signed by: Saw Mayer M.D. 07/01/2024 11:01 AM
--- NOTE | 2024-07-01 11:45 | Anesthesiology Progress Note ---
Date of Service July 01, 2024 Anesthesia Post Procedure Vital Signs Vital Signs: Temp Pulse Pulse Resp BP Pulse Ox O2 Del Method 07/01/24 11:30 58 L 15 186/85 H 92 Room Air 07/01/24 11:20 56 L 17 184/74 H 94 Room Air 07/01/24 11:10 59 L 18 172/76 H 95 Room Air 07/01/24 11:00 63 15 175/75 H 98 Room Air 07/01/24 10:50 70 19 164/70 H 96 Room Air 07/01/24 10:40 65 16 156/75 H 98 Room Air 07/01/24 10:32 36.0 C L 65 11 L 133/68 96 Room Air 07/01/24 07:06 36.6 C 65 20 215/93 H 98 Room Air Pain Intensity Right Knee: Pain Intensity: 5 Transfer of Care Handoff Completed per policy Notes Mental Status: alert / awake / arousable Patient Amnestic to Procedure: Yes Nausea / Vomiting: adequately controlled Pain: adequately controlled Airway Patency, RR, SpO2: stable & adequate BP & HR: stable & adequate Hydration State: stable & adequate Neuraxial Anesthesia: was administered and sensory block is resolving Anesthetic Complications: no major complications apparent and Pt Satisfied with anesthetic care Notes: Riley BALDERAS
[2024-07-01] MEDS ORDERED: NALOXONE HCL 0.4 MG/1 ML VIAL/CARP IV PRN (14:16)
[2024-07-01] MEDS ORDERED: METOCLOPRAMIDE HCL INJ 5 MG/ML 2 ML VIAL IV PRN (14:16)
[2024-07-01] MEDS ORDERED: MAGNESIUM HYDROXIDE SUSP 30 ML UDC PO PRN (14:16)
[2024-07-01] MEDS ORDERED: bisacodyL 10 MG SUPP PR PRN (14:16)
[2024-07-01] MEDS ORDERED: FLUTICASONE PROPIONATE NA SPR 16 GM BTL NAE PRN (14:16)
[2024-07-01] MEDS ORDERED: oxyCODONE HCL IR 5 MG TAB (IMMEDIATE RELEASE) PO PRN (14:16)
[2024-07-01] MEDS ORDERED: ALUMINUM/MAGNESIUM SUSP 30 ML UDC PO PRN (14:16)
[2024-07-01] MEDS ORDERED: HYDROmorphone INJ 0.5 MG/0.5 ML SYR IV PRN (14:16)
[2024-07-01] MEDS: SODIUM CHLORIDE 0.9% 1,000 ML IV SCH (15:06)
[2024-07-01] MEDS: KETOROLAC TROMETHAMINE 15 MG/ML VIAL IV SCH (15:06)
[2024-07-01] MEDS: TRANEXAMIC ACID / 0.7% NACL 1,000 MG/100 ML BAG IV SCH (16:23)
[2024-07-01] MEDS: LOSARTAN POTASSIUM 50 MG TAB PO SCH (16:24)
[2024-07-01] MEDS: ceFAZolin 1000MG 1,000 MG/7.5 ML SYR IV SCH (16:25)
[2024-07-01] MEDS: ASCORBIC ACID 500 MG TAB PO SCH (16:27)
[2024-07-01] MEDS: DOCUSATE SODIUM 100 MG CAP PO SCH (20:08)
[2024-07-01] MEDS: ASPIRIN 81 MG ECTAB PO SCH (20:08)
[2024-07-01] MEDS: SENNA 8.6 MG TAB PO SCH (20:08)
[2024-07-01] MEDS: PANTOprazole 40 MG TAB PO SCH (20:09)
[2024-07-01] MEDS ORDERED: SENNA 8.6 MG TAB PO SCH (21:00)
[2024-07-02 06:54] LABS: Hematocrit (blood only) 27.3 % (37.0-47.0); Hemoglobin 9.3 g/dl (12.0-16.0); Mean Corpuscular Hemoglobin 31.5 pg (25.0-34.0); Mean Corpuscular Hgb Conc 34.1 g/dL (32.0-36.0); Mean Corpuscular Volume 92.5 fL (80.0-100.0); Mean Platelet Volume 10.6 fL (9.4-12.4); Platelet Count 253 K/uL (130-400); RDW Coefficient of Variation 12.3 % (11.5-14.5); RDW Standard Deviation 41.4 fL (36.4-46.3); Red Blood Count 2.95 M/uL (4.20-5.40); White Blood Count 8.42 K/ul (4.8-10.8)
--- NOTE | 2024-07-02 07:10 | Orthopedic Progress Note ---
Date of Service July 02, 2024 Assessment & Plan (1) Status post right knee replacement: Plan: 73-year-old female postop day 1 from right knee replacement doing reasonably well. Moderate amount of pain but nothing out of the ordinary. No other complaints. Plan: 1. DVT prophylaxis including thigh-high teds, SCDs, aspirin twice a day. 2. PT/OT. Weight-bear as taught. Right total knee protocol. 3. Pain control. Doing pretty well with current pain regimen. 4. Disposition. Plan is to discharge to home with some home health. Her brothers can assist in her care as well as the mandaen members. Admission and Anticipated Discharge Date Admission Date: July 01, 2024 Subjective 73-year-old female postop day 1 from a right knee replacement. She is doing pretty well. She been up and out of bed last evening. Pains been pretty well- controlled. Reports some intermittent sharp pain. No chest pain or shortness of breath. Not feeling dizzy or lightheaded. Physical Exam Physical Exam: Physical examination was a pleasant elderly female. She is lying in bed looks pretty comfortable this morning. Examination of the right leg reveals the dressing to clean dry and intact. Leg is well aligned. She can dorsiflex and plantarflex her foot appropriately. She is neurologically intact. Respiratory: normal respiratory effort, lungs clear to auscultation Cardiovascular: RRR, no murmur, no edema Gastrointestinal (Abdomen): normal bowel sounds, soft, nontender, no hepatosplenomegaly Results & Data Vital Signs (Past 12 Hours) Vital Signs Temp Pulse Resp BP Pulse Ox O2 Del Method 07/02/24 03:24 36.8 C 70 18 146/82 H 97 Room Air 07/01/24 23:09 36.7 C 75 18 158/79 H 95 Room Air Laboratory Results Hemoglobin is 9.3. Hematocrit is 27.3. Electrolytes are pending.
[2024-07-02 07:16] LABS: BUN Creatinine Ratio 16.7 (10-20); Calcium 8.3 mg/dl (8.6-10.3); Creatinine Clr Calc Pharmacy 46.1 ml/min; Potassium 3.3 mmol/L (3.5-5.1)
[2024-07-02] MEDS: LEVOTHYROXINE SODIUM 88 MCG TABLET PO SCH (07:56)
[2024-07-02] MEDS: SERTRALINE HCL 100 MG TABLET PO SCH (07:56)
[2024-07-02] MEDS: hydroCHLOROthiazide 25 MG TAB PO SCH (07:56)
[2024-07-02] MEDS: MULTIVITAMIN TAB PO SCH (07:57)
[2024-07-02] MEDS: dexAMETHasone 10 MG in SYRINGE 0 ML IV SCH (07:58)
[2024-07-02] MEDS: POTASSIUM CHLORIDE CRTAB 20 MEQ TABCR PO SCH (08:01)
[2024-07-02] MEDS ORDERED: LOSARTAN POTASSIUM 50 MG TAB PO SCH (09:00)
--- NOTE | 2024-07-05 08:47 | Discharge Summary ---
Date of Service July 05, 2024 Admission HPI (Per Admitting) . The patient is a 73-year-old female referred by my physician library technical assistant Kenan for treatment of her knees. She got a fairly long history of bilateral knee pain discomfort is gradually gotten worse over time. Previously she has been treated at the [facility]. She has a history of a left knee scope in the past. She been through therapy and injections which become less successful over time. The right knee is bothering more than the left. He is actually resorted and used a cane to get around. She like to have her right knee replaced. Admission Exam (Per Admitting) . Physical examination reveals a pleasant middle-age female. She looks younger than her stated age. Examination of both knees reveal patient ambulates with use of cane. She got valgus alignment to both knees which is increased with weightbearing. Her range of motion is symmetric with near full extension to 120 degrees of flexion bilaterally. No particular pain with hip motion. She is neurologically intact. Principal Diagnosis Same as "Discharge Diagnosis" noted below under Discharge Instructions. Discharge Data Procedures Performed Operation Date: 07/01/24 08:50 Actual Procedures p Right Total Knee Arthroplasty(Right) - Candido Rincon MD Ordered Studies 07/01/24 05:00 US - OR guided needle placemen Routine Hospital Course (1) Status post right knee replacement: This is a 73 year old patient admitted on 07/01/24 and underwent total knee arthroplasty. She tolerated the procedure well and there were no complications. Transferred to the PACU post op and later to the orthopedic floor for further care. She was given ancef for antibiotic prophylaxis. She was also given MAUREEN stockings, SCDs, and aspirin for DVT prophylaxis. Hemoglobin, hematocrit, and vital signs were monitored during her hospital stay and remained stable. Did not require any blood transfusions. There were no complications during her hospital stay. By post op day #1 the patient was tolerating a regular diet, pain was reasonably controlled with oral pain medicine, and she was participating in physical therapy. On post op day #1 the patient was discharged home and set up with home health care. She was given printed discharge instructions including prescriptions for extra strength tylenol, aspirin, cefadroxil, ketorolac, zofran, senokot, and oxycodone. Continue physical therapy, weight bearing as tolerated. Continue MAUREEN stockings. Follow up approximately 2 weeks post op or sooner if there are problems or concerns. Discharge Plan Discharge Items Patient Disposition: Home - Home Health Services Reason For Visit: Right Knee Osteoarthritis Discharge Diagnosis: Right Knee Replacement Activity: Per Instructions section Weightbearing: Full weightbearing Non-emergency contact: Specialist Call non-emergency contact if: you have any medication questions Follow-up/Referrals: Eleanor Sampson DO [Primary Care Provider] - Diet: Regular Addtl Attending Provider Instructions: ACTIVITY RECOMMENDATIONS: Diet: * You may resume previous diet. Physical Therapy: * You will go to physical therapy three times each week for four to six weeks after your surgery in order to regain your knee range of motion and to retrain your knee to work properly. * It is just as important to make sure you are getting your knee perfectly straight as it is to regain your knee bend. * Taking a pain pill an hour before therapy can help you have a more productive and comfortable therapy session. Home Exercise: * You were shown a series of exercises (heel props, heel slides, etc.) in the hospital. Do these exercises three to four times each day including the exercises you were shown in physical therapy. Walking: * Get up and walk several times each day. For the first four weeks, try not to stand or walk for more than one hour at a time. If you do stand or walk for more than one hour, you will not hurt anything, but your knee and leg will likely swell. * As you feel comfortable, you may change from the walker or crutches to a cane and then to independent walking. MEDICATIONS: New Medicine: * You will likely be taking one or more of these medications: 1. Oxycodone - A quick and shorter-acting pain medication. Take one to two tablets every six hours to lessen your pain. 2. Aspirin - Thins your blood to lessen the chance of forming a blood clot. * The most common side effects of pain medicine and iron are nausea and constipation. If nausea or constipation is too much of a problem or if you have any questions about your new medicines or doses, call [facility] at . We will try to help you manage these issues. "VERY IMPORTANT TO READ AND REVIEW" Pain: * The immediate post-operative period after knee replacement surgery is often quite painful. * You are given a prescription for pain medicine. You should take it, as directed, when you need it, especially before physical therapy and before going to bed. Pain that interferes with sleep is very common and can last several months. * You will likely need pain medicine for the first four to six weeks. It will not stop all of the pain. The pain will lessen and as you feel better, you may change to milder pain medicine such as Tylenol. * The most common side effects of pain medicine are nausea and constipation, so don't take more than you need. SPECIAL CARE INSTRUCTIONS: TEDs/Elastic Stockings: * The white elastic stockings help limit swelling and prevent blood clots from forming in your legs. The more you wear them, the more they work. * Wear them for six weeks after knee replacement surgery and four weeks after partial knee replacement. Incision Site Care: * Remove dressing postoperative day 2 and then shower. Keep direct shower pressure off the incision site. * After showering, cover leonard with dry gauze and change daily or more frequently if the dressing is getting saturated with drainage. * Use the MAUREEN stockings to hold dressing in place. DO NOT apply tape on the skin. * May completely stop using bandage if wound is dry and no drainage * Leonard are removed between 2 and 3 weeks post-op. If your follow-up appointment is made before 2 weeks, please have your appointment re- scheduled. It is too early to remove the leonard. Prevention of Infection: * Take antibiotics one hour before any dental cleaning, dental work, urological procedure, gastrointestinal procedure or any invasive surgery in order to prevent your new joint from getting infected. * You may get the antibiotics from the doctor performing the procedure or you may call our office at [phone] before and we will call in a prescription to the pharmacy of your choice. Things to Watch For: * Drainage from the incision site that occurs more than one week after your surgery. * Severely increased knee/leg pain or swelling. * Increased redness at the incision site. * Fever above 102 degrees Fahrenheit. * Unusual chest pain or shortness of breath. * Unusual pain or burning with urination. Call [facility] at [phone] with any of the above problems or if you have any questions about your medicines or recovery. FOLLOW UP VISIT: Make an appointment to see your doctor for approximately two weeks after surgery for a progress check and staple removal by calling the office at [phone]. Pending Studies at Discharge: No Stand-Alone Forms: My [facility] Medications and DC Order Prescriptions: Continued oxycodone 5 mg tablet 5 - 10 mg PO Q6 PRN (Reason: pain) Qty: 40 0RF Rx Instructions: Take as needed for pain ondansetron 4 mg tablet,disintegrating 4 mg PO Q8 PRN (Reason: nausea) Qty: 20 1RF Rx Instructions: Take as needed for nausea sennosides [Senokot] 8.6 mg tablet 8.6 mg PO BID 14 Days Qty: 28 0RF Rx Instructions: Take two times a day to prevent/treat constipation acetaminophen [Tylenol Extra Strength] 500 mg tablet 1,000 mg PO TID 30 Days Qty: 180 0RF Rx Instructions: Take 3 times per day to lessen pain. aspirin [Brice Low Dose Aspirin] 81 mg tablet,delayed release (DR/EC) 81 mg PO BID 45 Days Qty: 90 0RF Rx Instructions: Take to prevent blood clots. cefadroxil 500 mg capsule 500 mg PO BID 7 Days Qty: 14 0RF Rx Instructions: Take 1 cap twice a day to prevent infection losartan 50 mg tablet 50 mg PO QAM sertraline 100 mg tablet 100 mg PO QAM levothyroxine 88 mcg tablet 88 mcg PO QAM potassium chloride 20 mEq tablet,ER particles/crystals 20 meq PO QAM pantoprazole 40 mg tablet,delayed release (DR/EC) 40 mg PO BID Patient Comments: usually only gets morning dose in hydrochlorothiazide 25 mg tablet 25 mg PO QAM fluticasone propionate 50 mcg/actuation spray,suspension 50 mcg INTRANASAL UD PRN (Reason: Congestion) Brice Back and Body 500-32.5 mg Tablet 2 tab PO QAM Discontinued ibuprofen 200 mg Capsule 200 mg PO Q6H PRN (Reason: Pain) Patient Comments: usually takes 1 cap BID Admission Data Admit Date/Time: 07/01/24 10:30 Attending Provider: Candido Rincon Admit Provider: Candido Rincon Primary Care Provider: Eleanor Sampson Other Providers: [facility],Home [facility] Other Interventions: Discharge Summary Assessment (RN) Last Done: 07/02/24 09:18
== END 2024-07-02 11:32 | disposition home health service (06) ==
LOC: ASU 06:33 → PACUINP 06:33 → 3W 13:59

== ENCOUNTER 2024-11-04 09:12 | Observation (INO) ==
--- NOTE | 2024-10-20 14:37 | PAT Medication Instructions ---
Medication Instructions Date of Service October 20, 2024 Home Medications aspirin-caffeine 500 mg-32.5 mg tablet (Brice Back and Body) 2 tab PO QAM fluticasone propionate 50 mcg/actuation nasal spray,suspension 50 mcg intranasal UD PRN Congestion hydrochlorothiazide 25 mg tablet 25 mg PO QAM levothyroxine 88 mcg tablet 88 mcg PO QAM pantoprazole 40 mg tablet,delayed release 40 mg PO BID potassium chloride 20 mEq tablet,extended release(part/cryst) 20 meq PO QAM sertraline 100 mg tablet 100 mg PO QAM losartan 100 mg tablet 100 mg PO QAM ASK your surgeon for instructions aspirin-caffeine 500 mg-32.5 mg tablet (Brice Back and Body) 2 tab PO QAM DO NOT take the morning of surgery hydrochlorothiazide 25 mg tablet 25 mg PO QAM potassium chloride 20 mEq tablet,extended release(part/cryst) 20 meq PO QAM losartan 100 mg tablet 100 mg PO QAM Take morning of surgery With a small sip of water, OTHERWISE NOTHING TO EAT OR DRINK AFTER MIDNIGHT: fluticasone propionate 50 mcg/actuation nasal spray,suspension 50 mcg intranasal UD PRN Congestion (if needed) levothyroxine 88 mcg tablet 88 mcg PO QAM pantoprazole 40 mg tablet,delayed release 40 mg PO BID sertraline 100 mg tablet 100 mg PO QAM Take evening before surgery fluticasone propionate 50 mcg/actuation nasal spray,suspension 50 mcg intranasal UD PRN Congestion (if needed) pantoprazole 40 mg tablet,delayed release 40 mg PO BID Other Notes If you have any questions please call us at [phone] or [phone] or [phone] or [phone]
--- NOTE | 2024-10-21 10:30 | Anesthesiology Consultation ---
Date of Service October 21, 2024 Assessment & Plan (1) Encounter for pre-operative examination: - s/p right TKA 07/01/24 SAB + PNB. Level not specified. - Outpatient joint assessment: Patient is currently scheduled for inpatient pathway. If re-evaluated and patient/surgeon requests outpatient pathway, patient is not recommended candidate for outpatient joint program. Chart Review Chart Review: Acceptable Risk for Surgery and Patient seen in Pre Admission Testing Teaching & Discussion Pre-Anesthesia Teaching/Discussion Notes: Instructed NPO after midnight before surgery, except medications with 15 cc of water. Medication instructions provided according to the PAT guidelines. History Surgery Operation Date: 11/04/24 10:40 Proposed Procedures p Right Total Hip Arthroplasty - Candido Rincon MD Height/Weight Height: 4 ft 11 in Weight: 66.8 kg Allergies Allergy/AdvReac Type Severity Reaction Status Date / Time No Known Allergies Allergy Verified 11/04/24 09:34 Medications Home Medications Medication Instructions Recorded Confirmed Last Taken aspirin-caffeine 500 mg-32.5 mg 2 tab PO QAM 05/27/24 11/04/24 10/30/24 tablet (Brice Back and Body) fluticasone propionate 50 50 mcg intranasal UD PRN Congestion 05/27/24 11/04/24 11/04/24 07:00 mcg/actuation nasal spray,suspension hydrochlorothiazide 25 mg tablet 25 mg PO QAM 05/27/24 11/04/24 11/03/24 07:00 levothyroxine 88 mcg tablet 88 mcg PO QAM 05/27/24 11/04/24 11/04/24 05:00 pantoprazole 40 mg tablet,delayed 40 mg PO BID 05/27/24 11/04/24 11/04/24 07:00 release potassium chloride 20 mEq 20 meq PO QAM 05/27/24 11/04/24 11/03/24 07:00 tablet,extended release(part/cryst) sertraline 100 mg tablet 100 mg PO QAM 05/27/24 11/04/24 11/04/24 07:00 losartan 100 mg tablet 100 mg PO QAM 10/20/24 11/04/24 11/03/24 07:00 acetaminophen 500 mg tablet 1,000 mg (2 x 500 mg) PO TID pain 11/02/24 11/04/24 Unknown (Tylenol Extra Strength) 30 days #180 tabs aspirin 81 mg tablet,delayed 81 mg PO BID 45 days #90 tabs 11/02/24 11/04/24 Unknown release (Brice Low Dose Aspirin) cefadroxil 500 mg capsule 500 mg PO BID 7 days #14 caps 11/02/24 11/04/24 Unknown ketorolac 10 mg tablet 10 mg PO Q6 PRN pain 5 days #20 11/02/24 11/04/24 Unknown tabs ondansetron 4 mg disintegrating 4 mg PO Q8 PRN nausea #20 tabs 11/02/24 11/04/24 Unknown tablet sennosides 8.6 mg tablet (Senokot) 8.6 mg PO BID prevent constipation 11/02/24 11/04/24 Unknown 14 days #28 tabs tramadol 50 mg tablet 50 - 100 mg (1 - 2 x 50 mg) PO Q6 11/02/24 11/04/24 Unknown PRN pain #40 tabs Active Medications Generic Name Dose Route Start Last Admin Trade Name Freq PRN Reason Stop Dose Admin Acetaminophen 1,000 mg 11/04/24 06:00 11/04/24 09:58 Acetaminophen 500 Mg Tab PO 11/04/24 18:00 1,000 mg PREOP DIANE Administration Celecoxib 200 mg 11/04/24 06:00 11/04/24 09:58 Celebrex 200 Mg Cap PO 11/04/24 18:00 200 mg PREOP DIANE Administration Dexamethasone Sodium Phosphate 10 mg 11/04/24 06:00 11/04/24 09:57 DexamethasonePf 10 Mg/Ml Vial IV 11/04/24 18:00 10 mg PREOP DIANE Administration Famotidine 20 mg 11/04/24 06:00 11/04/24 09:58 Famotidine 20 Mg Tab PO 11/04/24 18:00 20 mg PREOP DIANE Administration Lactated Ringer's 1,000 mls @ 60 mls/hr 11/04/24 06:00 11/04/24 09:57 Lr IV 11/04/24 22:39 Not Given .[id number] DIANE Lactated Ringer's 1,000 mls @ 15 mls/hr 11/04/24 06:00 11/04/24 09:57 Lr IV 11/04/24 18:00 15 mls/hr .Q24H DIANE Administration Metoclopramide HCl 10 mg 11/04/24 06:00 11/04/24 09:58 Metoclopramide Hcl 10 Mg Tablet PO 11/04/24 18:00 10 mg PREOP DIANE Administration Past Medical History Medical History History of diverticulitis 1 year ago Chronic back pain X-ray showed "showed tightening around the nerves in lower back" Hx of migraines History of depression History of hypertension controlled, stable per pt; white coat HTN Hx of hyperlipidemia Hx of gastroesophageal reflux (GERD) controlled, stable per pt Patient denies h/o stroke, seizures, heart attack, heart failure, DM, blood clot s/DVTs or blood transfusions. Exercise / Class Metabolic Activity III < 4 Walking/Shop/Light housework (ambulates with cane, denies chest discomfort or shortness of breath with usual activities) Past Family History Family History Other No family history of adverse response to anesthesia Past Surgical History Surgical History History of arthroplasty of right knee (06/2024) Hx of breast biopsy Right breast Benign; marker is present History of dilatation and curettage Hx of arthroscopy of left knee Foreign body removal Hx laparoscopic cholecystectomy (2023) Hx of section History of esophagogastroduodenoscopy (EGD) Hx of colonoscopy (2022) Hx of bilateral cataract extraction Past Anesthesia History No Hx of Anesthesia Complications and No Family Hx of Anesthesia Complications History of PONV No Hx of PONV and No Hx of Motion Sickness Social History Smoking Status: Former smoker Do You Dip or Chew Tobacco: No Smoking End Date: ~2000 Hx Alcohol Use: Yes alcohol intake frequency: holidays/special occasions only Hx Substance Use: No substance use type: does not use Review of Systems Occasional snoring, denies witnessed apneas. Patient denies chest pain, shortness of breath, dyspnea on exertion, fever, chil ls, cough, wheezing, or palpitations. Physical Exam Vital Signs Last Vital Signs Temp 37.0 C 11/04/24 09:37 Pulse 70 11/04/24 09:37 Resp 20 11/04/24 09:37 BP 187/83 H 11/04/24 09:37 Pulse Ox 97 11/04/24 09:37 O2 Del Method Room Air 11/04/24 09:37 Vitals BP 169/82 P 64 TEMP 98.3 SP02 97% on RA RESP 18 Physical Patient resting comfortably in chair in no acute distress, alert and oriented, responding appropriately throughout visit Full cervical extension range of motion without pain TMD 3 finger breadths Mallampati Score 3 Dentition: edentulous, full upper and lower dentures Lungs: normal respiratory effort. Good air movement, clear throughout to auscultation, no adventitious breath sounds Cardiac: regular rate and rhythm, no murmurs noted Carotid arteries: negative bruit bilat Lab Results Anesthesia Preop Results Results Anesthesia Widget: WBC 7.66 K/ul (4.8-10.8) 10/21/24 Hgb 12.8 g/dl (12.0-16.0) 10/21/24 Hct 37.2 % (37.0-47.0) 10/21/24 Plt 331 K/uL (130-400) 10/21/24 Na 137 mmol/L (136-145) 10/21/24 K 3.7 mmol/L (3.5-5.1) 10/21/24 Cl 104 mmol/L (98-107) 10/21/24 CO2 27 mmol/L (21-32) 10/21/24 BUN 28 mg/dl (6-23) H 10/21/24 Creat 0.94 mg/dl (0.6-1.2) 10/21/24 Glucose Level 85 mg/dl (70-99(Fasting)) 10/21/24 PT 10.1 Seconds (9.0-12.0) 10/21/24 PTT 23 Seconds (21-31) 10/21/24 INR 0.9 (0.9-1.1) 10/21/24 Blood Type B Negative 10/21/24 Antibody Screen NEGATIVE 10/21/24 Testing Electrocardiogram Date: 10/21/24 NSR, rate 63 bpm Chest X-Ray Date: 10/21/24 No acute findings.
[~2024-11-04 09:12] MED LIST changes: -ROPIVACAINE 0.5% 5 MG/ML 30 ML VIAL ONE
--- NOTE | 2024-11-04 09:20 | History & Physical Bridge Note ---
Date of Service November 04, 2024 History & Physical Bridge Note I have examined the patient, reviewed the History & Physical and in the interval since the performance of the History & Physical I have noted the following changes of clinical significance: no changes noted
[2024-11-04] MEDS: dexAMETHasone**PF** 10 MG/ML VIAL IV SCH (09:57)
[2024-11-04] MEDS: LR 500ML BOLUS, THEN 15ML/HR IV SCH (09:57)
[2024-11-04] MEDS: LR 60ML/HR IV SCH (09:57)
[2024-11-04] MEDS: FAMOTIDINE 20 MG TAB PO SCH (09:58)
[2024-11-04] MEDS: METOCLOPRAMIDE HCL 10 MG TABLET PO SCH (09:58)
[2024-11-04] MEDS: ACETAMINOPHEN 500 MG TAB PO SCH ×3 (09:58→16:18)
[2024-11-04] MEDS: CeleBREX 200 MG CAP PO SCH (09:58)
[2024-11-04] MEDS ORDERED: PROPOFOL IV EMULSION 10 MG/ML 100 ML VIAL IV ONE (10:09)
[2024-11-04] MEDS ORDERED: MIDAZOLAM HCL 1 MG/ML 2ML VIAL ONE (10:12)
[2024-11-04] MEDS ORDERED: ONDANSETRON INJ 2 MG/ML 2 ML VIAL ONE (10:12)
[2024-11-04] MEDS ORDERED: NALOXONE HCL 0.4 MG/1 ML VIAL/CARP IV PRN ×2 (10:36→15:10)
[2024-11-04] MEDS ORDERED: HYDROmorphone INJ 1 MG/ML SYRINGE IV PRN (10:36)
[2024-11-04] MEDS ORDERED: FLUMAZENIL 0.1 MG/1 ML 10 ML VIAL IV PRN (10:36)
[2024-11-04] MEDS ORDERED: ONDANSETRON INJ 2 MG/ML 2 ML VIAL IV PRN ×2 (10:36→15:10)
[2024-11-04] MEDS ORDERED: ATROPINE SULFATE 0.1 MG/ML 10ML SYR IV PRN (10:36)
[2024-11-04] MEDS ORDERED: PROMETHAZINE HCL 6.25 MG in SODIUM CHLORIDE 0.9% 50 ML IV PRN (10:36)
[2024-11-04] MEDS: TRANEXAMIC ACID 1,000 MG **IV Pre-op IV SCH (11:21)
[2024-11-04] MEDS ORDERED: ePHEDrine sulfate 50 MG/5 ML SYR ONE (12:08)
[2024-11-04] MEDS: BUPIVACAINE/EPINEPHRINE 0.5% MPF 1:200,000 30 ML VIAL ONE (12:23)
--- NOTE | 2024-11-04 13:40 | Operative Report ---
PG Post Operative Report Pre & Post Diagnosis Operation Date: 11/04/24 10:40 Pre-Op Diagnosis: Right Hip Osteoarthritis Post-Op Diagnosis: Right Hip Osteoarthritis I identified the patient and participated in the time-out.: Yes Procedure Operation Date: 11/04/24 10:40 Actual Procedures p Right Total Hip Arthroplasty, Uncemented(Right) - Candido Rincon MD Surgeon Candido Rincon MD Online Merchandising Manager Chapo Camarillo PA-C Estimated Blood Loss 100 Findings Consistent with Post-Op Diagnosis Operative findings with advanced right hip DJD. She had a fairly large hip joint effusion. She had diffuse grade 4 disease of the femoral head and acetabulum. Not much with osteophyte formation. Specimens Right femoral head sent for pathology. Anesthesia Type Spinal MAC Complications none Disposition Accompanied Patient To Recovery: No Indications Patient is 73-year-old female whose had a long history of multiple orthopedic joint aches and pains. She recently underwent a right knee replacement about 3- 1/2 to 4 months ago and has done well from this. She became more debilitated by right hip pain since her knee surgery. She is x-rays ordered using a cane. X- rays show progressive right hip arthritis. She would like to proceed with right total hip arthroplasty. Description of Procedure Operative implants consist of: 1 Biomet G7 size 48 mm acetabular shell. 2. 6.5 cancellous acetabular screws 1 of 35 mm length and 1 of 30 mm length. 3. [place] hole x ray tech. 4. Highly cross-linked polyethylene liner with a 48 mm outer diameter 32 mm diameter. 5. DePuy carotic size 11 short neck 125 degree angle femoral stem. 6. +5/32 mm ceramic articular ball. The patient was taken to the op room, identified, placed on the operating table in the supine position. All contractors were appropriately padded. IV antibiotics by anesthesia team. A spinal anesthetic could be implemented in the holding area. A Contrreas catheter was placed in sterile fashion. The patient then placed in the left lateral decubitus position. An axillary roll was placed. Stulberg hip positioner was used for positioning. The right hip and leg were then prepped and draped in usual sterile fashion. A posterolateral approach to the right hip was then performed through a curvilinear incision centered over the greater trochanter. Sharp dissection was Through subcutaneous tissue over the IT band and gluteal fascia. She had a fairly thick subcutaneous soft tissue envelope. The IT band gluteal fascia were then incised longitudinally in line with skin incision. The greater Bursa was skies. The piriformis and external rotators were then very carefully taken off the posterior aspect of the hip joint along with hip joint capsule take great care to protect the sciatic nerve at all times. 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 Hip was internally rotated and dislocated. A femoral neck osteotomy cut was made with Final Cut about 7 mm above the lesser trochanter. Femoral head was removed and sent for pathology. The femur was retracted anteriorly. Attention drawn to the acetabulum. The acetabular labrum was excised. The palmar fat was excised. Sequential reaming the acetabulum was then performed beginning with a size 43 and progressing up to 47. Reamed a little bit with a 48 reamer and then placed a 48 mm Biomet G7 acetabular shell and about 4 degrees lateral opening and 20 degrees of anteversion. It was fixed with two 6.5 screws. A trial liner was placed. Attention drawn to the femur. The proximal femur was entered with a cookie cutter followed by canal finder. I then broached being a size 8 progressing up to 11. Excellent fit 11. We trialed the hip in the short neck seen most appropriately. It was a +5 particular but recreated leg lengths equal appropriate soft tissue tension, and was fully stable in full extension and external rotation and flexion to 90 degrees into rotation to over [address] We elected to place these implants. All trial implants were removed. [place] hole limited was placed. Highly cross- linked polyethylene liner was placed. A size 11 KLA 125 degree angle short neck femoral stem was impacted in position. A +5/32 mm ceramic articular ball was placed. Hip was located and once again found to take stable. Attention drawn toward closing. The wound was irrigated pulsatile lavage solution. I did inject locally with 60 cc of percent Marcaine with epinephrine. The posterior capsule and external rotators were then repaired through drill holes in the posterior trochanter with #2 Tycron suture. The IT band and gluteal fascia were then closed in 1 PDS suture running fashion. Subcutaneous tissue was then closed with 3 layers of the deep layer #2 Vicryl suture the intermediate layer with #1 Vicryl suture in the subcutaneous tissue with 2-0 Dexon suture in a buried interrupted fashion. Skin was closed skin leonard. Leg was then cleaned and dried and a Prevena VAC dressing was applied to the thick of soft tissue subcutaneous envelope. The patient was then transferred to the recovery room in stable condition. Patient tolerated procedure well and there were no complications. Chapo Camarillo, my physician legal executive assistant, was present for the entire procedure. His assistance was required for proper patient positioning, prepping and draping, surgical exposure, retraction, performed the technical details of the operation, closure of the incision site, placement of the postoperative sterile bandage. I attest to the content of the Intraoperative Record and any orders documented therein. Any exceptions are noted below.
--- NOTE | 2024-11-04 14:11 | XRay Report ---
XR hip 1V RT w pelvis CLINICAL HISTORY: IN PACU - Post Surgical COMPARISON: None pertinent FINDINGS: AP view of the low pelvis and a crosstable lateral view of the right hip demonstrate a rig ht hip arthroplasty with satisfactory positioning and alignment of the prosthetic components. Postsur gical changes are noted in the soft tissues. IMPRESSION: Satisfactory postop appearance ACT 112: Negative or not required by law. Electronically signed by: Crystal Su M.D. 11/04/2024 2:10 PM
--- NOTE | 2024-11-04 14:42 | Anesthesiology Progress Note ---
Date of Service November 04, 2024 Anesthesia Post Procedure Vital Signs Vital Signs: Temp Pulse Resp BP BP Pulse Ox O2 Del Method 11/04/24 14:35 61 14 176/95 H 96 Room Air 11/04/24 14:25 58 L 14 171/72 H 97 Room Air 11/04/24 14:15 57 L 17 164/99 H 96 Room Air 11/04/24 14:05 57 L 15 114/83 96 Room Air 11/04/24 13:55 36.4 C L 65 14 153/73 H 96 Room Air 11/04/24 13:45 67 20 177/77 H 94 Room Air 11/04/24 13:35 65 22 165/73 H 97 Room Air 11/04/24 13:29 36.2 C L 67 23 104/87 98 Oxymask 11/04/24 09:37 37.0 C 70 20 187/83 H 97 Room Air O2 Flow Rate 11/04/24 14:35 11/04/24 14:25 11/04/24 14:15 11/04/24 14:05 11/04/24 13:55 11/04/24 13:45 11/04/24 13:35 11/04/24 13:29 10 11/04/24 09:37 Pain Intensity Right Hip: Pain Intensity: 2 Transfer of Care Handoff Completed per policy Notes Mental Status: alert / awake / arousable Patient Amnestic to Procedure: Yes Nausea / Vomiting: adequately controlled Pain: adequately controlled Airway Patency, RR, SpO2: stable & adequate BP & HR: stable & adequate Hydration State: stable & adequate Neuraxial Anesthesia: was administered and sensory block is resolving Anesthetic Complications: no major complications apparent
[2024-11-04] MEDS ORDERED: FLUTICASONE PROPIONATE NA SPR 16 GM BTL NAE PRN (15:10)
[2024-11-04] MEDS ORDERED: METOCLOPRAMIDE HCL INJ 5 MG/ML 2 ML VIAL IV PRN (15:10)
[2024-11-04] MEDS ORDERED: MAGNESIUM HYDROXIDE SUSP 30 ML UDC PO PRN (15:10)
[2024-11-04] MEDS ORDERED: ALUMINUM/MAGNESIUM SUSP 30 ML UDC PO PRN (15:10)
[2024-11-04] MEDS ORDERED: ONDANSETRON 4 MG OD TAB PO PRN (15:10)
[2024-11-04] MEDS ORDERED: HYDROmorphone INJ 0.5 MG/0.5 ML SYR IV PRN (15:10)
[2024-11-04 15:31] VITALS: RESP 18
[2024-11-04] MEDS: ASCORBIC ACID 500 MG TAB PO SCH (16:18)
[2024-11-04] MEDS: KETOROLAC TROMETHAMINE 15 MG/ML VIAL IV SCH (16:19)
[2024-11-04] MEDS: SODIUM CHLORIDE 0.9% 1,000 ML IV SCH (16:19)
[2024-11-04] MEDS ORDERED: KETOROLAC TROMETHAMINE 10 MG TABLET PO PRN (18:00)
[2024-11-04] MEDS: TRANEXAMIC ACID / 0.7% NACL 1,000 MG/100 ML BAG IV SCH (20:26)
[2024-11-04] MEDS: SENNA 8.6 MG TAB PO SCH ×2 (20:27)
[2024-11-04] MEDS: DOCUSATE SODIUM 100 MG CAP PO SCH (20:27)
[2024-11-04] MEDS: ASPIRIN 81 MG ECTAB PO SCH (20:28)
[2024-11-04 22:33] VITALS: TEMP 98.2
[2024-11-05] MEDS: LEVOTHYROXINE SODIUM 88 MCG TABLET PO SCH (05:47)
[2024-11-05 06:18] LABS: Hematocrit (blood only) 29.8 % (37.0-47.0); Hemoglobin 10.3 g/dl (12.0-16.0); Immature Granulocytes # (auto) 0.09 K/uL (0.01-0.20); Immature Granulocytes % (auto) 0.7 %; Mean Corpuscular Hemoglobin 30.9 pg (25.0-34.0); Mean Corpuscular Volume 89.5 fL (80.0-100.0); Platelet Count 332 K/uL (130-400); RDW Standard Deviation 38.8 fL (36.4-46.3); Red Blood Count 3.33 M/uL (4.20-5.40); White Blood Count 12.10 K/ul (4.8-10.8)
[2024-11-05 06:39] LABS: Anion Gap 9.0 (3-11); Blood Urea Nitrogen 15.0 mg/dl (6-23); Calcium 8.8 mg/dl (8.6-10.3); Carbon Dioxide 27.0 mmol/L (21-32); Chloride 103.0 mmol/L (98-107); Creatinine Clr Calc Pharmacy 43.9 ml/min; Glucose 120.0 mg/dl (70-99(Fasting)); Potassium 3.1 mmol/L (3.5-5.1); Sodium 139.0 mmol/L (136-145)
[2024-11-05 06:58] VITALS: PULSE 67; O2SAT 95
--- NOTE | 2024-11-05 07:18 | Orthopedic Progress Note ---
Date of Service November 05, 2024 Assessment & Plan (1) Status post right hip replacement: Plan: 73-year-old female postop day 1 from a right hip replacement. She is doing well. Pain is very well-controlled. She been up and walking. Hoping to go home today. Plan: 1. DVT prophylaxis including thigh-high teds, SCDs, aspirin twice a day. 2. PT/OT. Weightbearing tactfully" protocol. 3. Pain control. Doing well with current pain regimen. 4. Disposition. Plan is to discharge to home with some home health. Will see how she does in therapy this morning. Admission and Anticipated Discharge Date Admission Date: November 04, 2024 Subjective 73-year-old female postop day 1 from a right hip replacement. She is doing well. Pains been very well-controlled. No chest pain or shortness of breath. She was up and walking last evening. She is hoping to go home today. Physical Exam Physical Exam: Physical examination reveals a pleasant middle-aged female. She is lying in bed looks pretty comfortable. Examination right hip reveals dressing clean dry and intact. Thigh is soft and supple. Hip is located. She is neurologically intact. Respiratory: normal respiratory effort, lungs clear to auscultation Cardiovascular: RRR, no murmur, no edema Gastrointestinal (Abdomen): normal bowel sounds, soft, nontender, no hepato splenomegaly Results & Data Vital Signs (Past 12 Hours) Vital Signs Temp Pulse Resp BP BP Pulse Ox O2 Del Method 11/05/24 06:58 36.8 C 67 18 135/76 95 Room Air 11/05/24 03:13 36.8 C 73 18 151/63 H 96 Room Air 11/04/24 22:32 36.8 C 68 18 158/82 H 97 Room Air 11/04/24 19:42 36.7 C 68 18 157/80 H 97 Room Air Laboratory Results Hemoglobin 10.3. Macro 29.8. Electrolytes are stable. Sodium just slightly low at 3.1.
[2024-11-05] MEDS: dexAMETHasone 10 MG in SYRINGE 0 ML IV SCH (07:46)
[2024-11-05] MEDS: POTASSIUM CHLORIDE CRTAB 20 MEQ TABCR PO SCH (08:41)
[2024-11-05] MEDS: MULTIVITAMIN TAB PO SCH (08:41)
[2024-11-05] MEDS: SERTRALINE HCL 100 MG TABLET PO SCH (08:41)
[2024-11-05] MEDS: LOSARTAN POTASSIUM 50 MG TAB PO SCH (08:42)
[2024-11-05] MEDS: hydroCHLOROthiazide 25 MG TAB PO SCH (08:42)
[2024-11-05] MEDS ORDERED: NON-FORMULARY MEDICATION (Aspirin-Caffeine [Bayer Back And Body] 500-32.5 mg Tablet) PO SCH (09:00)
[2024-11-05 11:07] VITALS: BP 157/80
== END 2024-11-05 11:30 | disposition home health service (06) ==
LOC: 3E 09:12 → ASU 09:12